=== PATIENT | female | born 1960 | race Caucasian/White ===

== ENCOUNTER → 2020-01-17 15:28 | Outpatient (CLI) | payer OTHER, SELFPAY ==
[2020-01-17 16:19] LABS: Add Manual Diff / Slide Review NO; Basophils Absolute Auto 0 /uL (0-100); Eosinophils Absolute Auto 100 /uL (0-450); Eosinophils Percent Auto 2.3 % (2-4); Hematocrit 39.8 % (36-46); Hemoglobin 13.6 g/dL (12.0-16.0); Lymphocytes Absolute Auto 600 /uL (1100-4500); Lymphocytes Percent Auto 13.3 % (25-40); Mean Corpuscular HGB Conc 34.1 % (30-36); Monocytes Absolute Auto 500 /uL (0-900); Monocytes Percent Auto 9.7 % (3-14); Neutrophils Absolute Auto 3400 /uL (1500-7000); Neutrophils Percent Auto 73.7 % (50-75); Platelet Count 243 X10^3/uL (150-400); Red Blood Cell Count 4.52 X10^6/uL (4.0-5.2); Red Cell Distribution Width 13.9 % (11.6-14.8); White Blood Cell Count 4.6 X10^3/uL (4.5-11.0)
[2020-01-17 16:35] LABS: Alanine Aminotransferase 23 IU/L (<35); Albumin 4.6 g/dL (3.5-5.0); Albumin Globulin Ratio 1.5 (1.0-2.8); Alkaline Phosphatase 80 U/L (38-126); Aspartate Aminotransferase 35 IU/L (14-36); BUN Creatinine Ratio 11.5 (6-22); Blood Urea Nitrogen 12 mg/dL (7-17); Calcium 9.9 mg/dL (8.4-10.2); Carbon Dioxide 28 mmol/L (22-32); Chloride 100 mmol/L (98-107); Cholesterol 177 mg/dL (140-199); Estimated Glomerular Filt Rate 53.9 mL/min (>60); Globulin 3.1 g/dL (1.7-4.1); Glucose 83 mg/dL (80-110); HDL Cholesterol 54 mg/dL (40-60); HEMOLYSIS < 15 (0-50); LDL Cholesterol Calculated 111 mg/dL (<100); Potassium 3.9 mmol/L (3.4-5.1); Sodium 138 mmol/L (137-145); Total Protein 7.7 g/dL (6.3-8.2); Triglycerides 59 mg/dL (35-150)
[2020-01-17 16:53] LABS: Vitamin D 25 Hydroxy (D3) 28.9 ng/mL (30.0-100.0)
[2020-01-17 17:04] LABS: TSH w/ Reflex to FT4 0.84 uIU/mL (0.47-4.68)
== END ==
PROVIDERS: Family Provider Physician Assistant; PCP Physician Assistant; Referring Provider Physician Assistant; Visit Provider Physician Assistant
DX: R23.2 Flushing (principal); R53.83 Other fatigue; E55.9 Vitamin D deficiency, unspecified; E78.5 Hyperlipidemia, unspecified; I10 Essential (primary) hypertension
CPT/HCPCS: 36415; 80053; 80061; 82306; 84443; 85025

== ENCOUNTER → 2020-01-22 11:22 | Outpatient (CLI) | payer OTHER, SELFPAY ==
[2020-01-25 16:14] LABS: COVID19 Sendout Not Detected (Not Detected)
== END ==
PROVIDERS: Family Provider Physician Assistant; PCP Physician Assistant; Visit Provider Registered Nurse
DX: Z01.812 Encounter for preprocedural laboratory examination (principal)
CPT/HCPCS: 87635

== ENCOUNTER → 2020-01-24 15:59 | Outpatient (CLI) | payer OTHER, SELFPAY ==
[2020-01-24 18:07] LABS: COVID19 -Nasal RAPID Negative (Negative)
== END ==
PROVIDERS: Family Provider Physician Assistant; PCP Physician Assistant; Visit Provider Registered Nurse
DX: Z01.812 Encounter for preprocedural laboratory examination (principal)
CPT/HCPCS: 87635

== ENCOUNTER → 2020-06-18 11:44 | Outpatient (CLI) | payer OTHER, SELFPAY ==
[2020-06-19 06:52] LABS: COVID19 Sendout Not Detected (Not Detect)
== END ==
PROVIDERS: Family Provider Physician Assistant; PCP Physician Assistant; Visit Provider Nurse Practitioner
DX: Z11.59 Encounter for screening for other viral diseases (principal)
CPT/HCPCS: 87635

== ENCOUNTER → 2021-05-02 10:32 | Outpatient (CLI) | payer OTHER, SELFPAY ==
[2021-05-02 13:50] LABS: COVID19 -Nasal RAPID Negative (Negative)
== END ==
PROVIDERS: Family Provider Physician Assistant; PCP Physician Assistant; Visit Provider Nurse Practitioner
DX: Z20.822 Contact with and (suspected) exposure to COVID-19 (principal)
CPT/HCPCS: 87635

== ENCOUNTER → 2024-07-05 14:53 | Outpatient (CLI) | payer OTHER, SELFPAY ==
[2024-07-05 15:34] LABS: Add Manual Diff / Slide Review NO; Basophils Absolute Auto 0 /uL (0-100); Basophils Percent Auto 0.6 % (0-2); Eosinophils Absolute Auto 200 /uL (0-450); Hematocrit 45.2 % (36-46); Lymphocytes Absolute Auto 1400 /uL (1100-4500); Lymphocytes Percent Auto 16.8 % (25-40); Mean Corpuscular HGB Conc 33.1 % (30-36); Mean Corpuscular Hemoglobin 29.7 PG (26-34); Mean Corpuscular Volume 89.5 fL (80-100); Monocytes Absolute Auto 700 /uL (0-900); Neutrophils Absolute Auto 5800 /uL (1500-7000); Neutrophils Percent Auto 70.6 % (50-75); Platelet Count 266 X10^3/uL (150-400); Red Blood Cell Count 5.05 X10^6/uL (4.0-5.2); Red Cell Distribution Width 13.8 % (11.6-14.8); White Blood Cell Count 8.2 X10^3/uL (4.5-11.0)
[2024-07-05 15:49] LABS: Hemoglobin A1C% w Est Avg Glu 4.9 % (4.0-6.0)
[2024-07-05 15:54] LABS: BUN Creatinine Ratio 12.7 (6-22); Blood Urea Nitrogen 13 mg/dL (7-17); Calcium 10.3 mg/dL (8.4-10.2); Carbon Dioxide 27 mmol/L (22-32); Chloride 96 mmol/L (98-107); Estimated Glomerular Filt Rate > 60 mL/min (>60); Glucose 76 mg/dL (80-110); HEMOLYSIS 23 (0-50); Potassium 3.9 mmol/L (3.4-5.1); Sodium 135 mmol/L (137-145)
[2024-07-05 16:25] LABS: Appearance Urine UA CLEAR; Bilirubin Urine UA NEGATIVE (NEGATIVE); Color Urine UA YELLOW; Glucose Urine UA NEGATIVE (Negative); Ketones Urine UA 1+ (NEGATIVE); Leukocyte Esterase Urine UA TRACE (NEGATIVE); Nitrite Urine UA NEGATIVE (Negative); Occult Blood Urine UA NEGATIVE (Negative); Protein Urine UA NEGATIVE (Negative); Urobilinogen Urine UA 0.2 E.U./dL (0.2)
[2024-07-05 16:26] LABS: pH Urine UA 5.5 (4.5-8.0)
[2024-07-05 16:33] LABS: Bacteria Urine Moderate (10-30); Culture Indicated Urine Cult Not Indicated; Mucus Urine 1+ (Negative); RBC Urine 0-1/HPF (0-5/HPF); Squamous Epithelial Cell Urine 10-30 /HPF (0-5/HPF); Urine Volume 10mL (spun); WBC Urine 1-5/HPF (0-5/HPF)
== END ==
LOC: LAB 14:56
PROVIDERS: Family Provider Physician Assistant; PCP Physician Assistant; Referring Provider Orthopaedic Surgery; Visit Provider Orthopaedic Surgery
DX: Z01.812 Encounter for preprocedural laboratory examination (principal); R73.9 Hyperglycemia, unspecified; N39.0 Urinary tract infection, site not specified
CPT/HCPCS: 36415; 80048; 81001; 83036; 85025

== ENCOUNTER 2024-08-24 10:00 | Day surgery (SDC) | payer OTHER, SELFPAY ==
[2024-08-04 12:28] VITALS: BMI 34.0
[2024-08-24] VITALS (10 sets, daily range): BP systolic 109–169; BP diastolic 63–94; PULSE 60–84; RESP 16–18; TEMP 35.8–36.8; O2SAT 98–100; BMI 34.0; BMI 32.9; BMI 34.8
--- NOTE | 2024-08-24 | DI.RAD.S_ITS ---
PROCEDURE: [id number] W PEL IF PERFORMED INDICATIONS: ANTERIOR LEFT TOTAL HIP TECHNIQUE: 4 intraoperative fluoroscopic images of the left hip. COMPARISON: None. FINDINGS: Intraoperative fluoroscopic images shows left total hip arthroplasty in progress. IMPRESSION: Fluoro guidance was provided intraoperatively for left total hip arthroplasty by ordering physician. Dictated by: Germán Espinoza M.D. on 08/25/2024 at 9:38 Approved by: Germán Espinoza M.D. on 08/25/2024 at 9:39
--- NOTE | 2024-08-24 06:00 | DI.RAD.S_ITS ---
PROCEDURE: XR HIP W PEL IF DONE LT 2V INDICATIONS: total left hip TECHNIQUE: AP pelvis and lateral view of the hip acquired. COMPARISON: [facility], CR, [id number] W PEL IF PERFORMED, 08/24/2024, 13:35. FINDINGS: Bones: Patient is status post left hip arthroplasty, with hardware components in expected positions. The hip joint appears congruent. The visualized bony structures appear intact. Soft tissues: Overlying postoperative changes are noted. No suspicious soft tissue densities. IMPRESSION: Expected post-operative appearance of a left hip arthroplasty. Dictated by: Nasim Bueno M.D. on 08/24/2024 at 15:34 Approved by: Nasim Bueno M.D. on 08/24/2024 at 15:34
--- NOTE | 2024-08-24 10:28 | PM.PREOP ---
Pre-operative Note Interval Note History & Physical reviewed/Exam performed by Physician: Yes Changes to H&P: No
[2024-08-24] MEDS: ACETAMINOPHEN 325 MG TABLET 975 MG PO (10:54)
[2024-08-24] MEDS: CELECOXIB 200 MG CAPSULE PO (10:55)
[2024-08-24] MEDS: VANCOMYCIN 1,000 MG in SODIUM CHLORIDE 0.9% 250 ML 250 MG IV (10:55)
[2024-08-24] MEDS: LACTATED RINGERS 1,000 ML 42 ML IV (10:55)
[2024-08-24] MEDS: CEFAZOLIN 2 GM/100 ML PREMIX 100 ML IV ×2 (12:26→20:10)
[2024-08-24] MEDS: TRANEXAMIC ACID 1,000 MG VIAL 2000 MG INJ ×2 (12:35→14:16)
--- NOTE | 2024-08-24 13:00 | SUR.OPER ---
Patient supine on padded [place] table, one arm on padded arm board at <90, other arm padded and secured with tape across patient's chest, both legs secured in padded traction boots and positioned per surgeon, padded post at patient's groin, pressure points checked and padded.
[2024-08-24] MEDS: BUPIVACAINE 0.25% (PF) 60 ML, EPINEPHrine 0.3 MG INJ (13:15)
[2024-08-24] MEDS: BUPIVACAINE LIPOSOME 266 MG/20 ML VIAL INJ (13:15)
[2024-08-24] MEDS: SODIUM CHLORIDE 0.9% 1,000 ML 84 ML IV (13:55)
[2024-08-24] MEDS: IBUPROFEN 400 MG TABLET PO ×2 (15:40→20:11)
--- NOTE | 2024-08-24 16:05 | PT-IP ANOTE ---
Pt just arrives to floor post-op. No op report yet available. Will initiate assessment next date.
[2024-08-24] MEDS: MORPHINE 4 MG/ML INJ 3 MG IV ×3 (16:11→22:44)
[2024-08-24] MEDS: LACTATED RINGERS 1,000 ML 100 ML IV (16:23)
[2024-08-24] MEDS: ACETAMINOPHEN 325 MG TABLET 650 MG PO ×2 (16:51→22:45)
--- NOTE | 2024-08-24 16:52 | PC.NURSE ---
Patient arrived from PACU at 1530 this afternoon. She is A&OX4, VSS, afebrile on RA. Initially she reports BLE numbness to roque area.She is initially unable to wiggle toes, but denies pain to L hip. Aquacel in place c/d/i. She denies n/v/. Later on approximately 1700 she is able to bend knees and turn in bed,she is able to lift legs, and reports dull sensation to BLE's. IVF LR at 100 ml/hr, call light in reach, SCD's on, continuous pulse ox, orientation to room/unit routine, bed alarm on. She reports last void at approximately 11 a.m. and due to void this evening at 1900. Continuous monitoring.
--- NOTE | 2024-08-24 17:53 | P.OP_ITS ---
Operative Date/Time/Diagnoses Date of procedure: 08/24/24 Time of procedure: 12:30 Pre-op diagnosis: Severe left hip OA Post-op diagnosis: same Procedure & Clinicians Procedure: Left total hip arthroplasty anterior approach Same procedure as scheduled: Yes Indications: The patient has had progressively worsening left hip pain with radiographic changes consistent with arthritis. Non-operative management has failed and the patient has requested total hip replacement. The risks, benefits and alternatives to surgery were discussed with the patient prior to proceeding. Risks discussed included, but were not limited to, failure to relieve pain, leg length discrepancy, dislocation, stiffness, infection, nerve damage, deep venous thrombosis, pulmonary embolism, stroke, coma, heart attack, permanent paralysis and , as well as the potential need for eventual revision of the prosthetic. Surgeon: Vibha Chairez [employer] Coach: Bradley Hall Anesthesia Type: General and Spinal Operative Notes Findings: Severe left hip OA, adequate stability, adequate bone Closure Type: primary Specimen(s): none sent Prosthetic devices, grafts, tissues, transplants, or devices: Chairez and Nephew 48 mm R3, neutral poly liner, 32 +0 Oxinium head,one 6.5 mm screw, size 0 polar stem Estimated Blood Loss (mL): 250 Blood products transfused: none Procedure in detail: The patient was brought to the operating room. Patient was carefully positioned in the supine position. Time-out was performed and antibiotics were given. Anesthesia was induced. She was positioned in the on the table in order to allow hyperextension of the hip. The left lower extremity was prepped and draped in a standard sterile fashion. An anterior left hip incision was made 1 fingerbreadth lateral to the anterior superior iliac spine and extended distally towards the greater trochanter. Dissection was carried out through skin and subcutaneous tissues. Superficial hemostasis was achieved. The fascia over the tensor fascia maranda was defined and incised with a knife. Two Allis clamps were used to grasp the fascia. Tensor fascia maranda was retracted laterally. A gelpi retractor was placed. Dissection was carried out down along the neck. The circumflex vessels were carefully identified and cauterized with the Aqua Mantis. PA was used during the procedure and was essential for intraoperative retraction and safe implantation of the components. There was good visualization of the femoral neck. A Cobra was placed superior to the neck and the gluteus fibers were carefully stripped from that superior aspect of the capsule. A 2nd retractor was placed along the inferior aspect of the neck. The rectus insertion along the capsule was partially released. A 3rd retractor that was then gently placed over the rim of the acetabulum under the rectus. Capsule was carefully incised and released from the intertrochanteric line circumferentially superior to the mid sagittal line and inferiorly to the mid sagittal line until the lesser trochanter was palpable. A tag stitch was placed both in the superior and inferior limb of the capsular insertion. Along the acetabulum capsule was also released up to the mid sagittal 12:00 position. A portion of the labrum was resected. A saw was used to perform an osteotomy at the level of the intertrochanteric line and the junction of the superior femoral neck leaving approximately 1 finger breath of residual inferior neck above the lesser trochanter. A 2nd cut was made along the femoral neck at the base of the head and a napkin ring of neck was removed. Corkscrew was placed in the femoral head and the head was removed without difficulty. Retractors were then repositioned around the acetabulum. Residual labrum was resected and additional osteophytes were removed. A reamer that was 4 mm below the templated size was placed by hand in the acetabulum and it was reamed to centralize the acetabulum. It was then reamed up to 2 under the templated size and fluoroscopy was brought in to confirm the position of the reaming and depth of reaming. I reamed 1 under the anticipated size. A trial cup was placed and noted that it was appropriately sized and fluoroscopy confirmed position and depth. The component was open and inserted without difficulty fluoroscopic imaging was used to confirm that the cup had been adequately seated and was well positioned. It was further stabilized with a single screw. Neutral poly liner was placed. The cup was tested and noted to be stable. Attention was then directed to the femur. The femur was gently hyperextended additional capsular release was performed as needed in order to allow adequate visualization of the proximal femur with elevation of the femur. Patient was placed in a hyperextended slightly adducted position with maximum external rotation. Box osteotome was used to check for any residual neck as well as sclerotic bone along the trochanter. [place] pepper was placed in the femur. Additional broaching was performed. Canal finder was used to determine the alignment of the canal and position. Size 1 broach was placed. The canal was then appropriately broached up to the templated size as long as there was adequate stability of the broach and serial advancement of the broach without excessive impingement. Specific attention was directed at avoiding varus attempting to direct the distal aspect of the broach more anteriorly and avoiding excessive anteversion. Trial reduction showed acceptable range of motion, good stability, no posterior impingement, orthodox of leg length and appropriate lateral shuck. I also hyperflexed the hip and checked that there was no impingement anteriorly and there was good stability with flexion, adduction and internal rotation. The stem was placed without difficulty. Repeat trial reduction and x-ray showed acceptable overall position, length, and no evidence of the femoral fracture. Final head was placed. Wound was meticulously irrigated with normal saline. The hip was reduced and additional Exparel and Marcaine were injected. The capsule was closed with interrupted nonabsorbable sutures. The fascia of the tensor was closed with interrupted and running Vicryl. No drain was placed. Any tensor fascia maranda muscle that appeared to be contused or injured which was a minimal amount was carefully resected. Capsule around the tensor was injected with Exparel and Marcaine. The skin was closed with barbed stitches for the subcutaneous tissue and skin. We also used some skin bhupinder. The wound was dressed sterilely. Brief Betadine soak was also used and was meticulously irrigated with normal saline. Patient was transferred to recovery room in satisfactory condition. Complications: none Post-operative Condition: stable Disposition: Acute Care Plan for aftercare: The patient will be maintained on a standard total hip replacement protocol with weight bearing as tolerated and anterior hip precautions. The patient will receive Aspirin and sequential compression devices for DVT prophylaxis. The patient will be discharged home when safe for the home environment.
[2024-08-24] MEDS: ASPIRIN EC 81 MG TABLET PO (20:11)
[2024-08-24] MEDS: DOCUSATE 100 MG CAPSULE PO (20:13)
[2024-08-24] MEDS: CALCIUM CARBONATE 500 MG TAB PO (22:26)
--- NOTE | 2024-08-25 00:32 | PC.NURSE ---
Patient up to commode, 2PA, unable to void. Bladder scan result 525mL, straight cath- 450mL. PVR 42ml
[2024-08-25] MEDS: ONDANSETRON 4 MG ODT PO ×2 (02:31→09:10)
[2024-08-25] MEDS: CALCIUM CARBONATE 500 MG TAB PO ×2 (02:31→12:18)
[2024-08-25] MEDS: CEFAZOLIN 2 GM/100 ML PREMIX 100 ML IV (03:24)
[2024-08-25] MEDS: IBUPROFEN 400 MG TABLET PO (06:09)
[2024-08-25] MEDS: MORPHINE 4 MG/ML INJ 3 MG IV (06:09)
[2024-08-25] MEDS: CYCLOBENZAPRINE 10 MG TABLET PO (06:09)
[2024-08-25 06:50] LABS: Hematocrit 34.5 % (36-46); Hemoglobin 11.5 g/dL (12.0-16.0)
[2024-08-25 08:00] VITALS: BP 118/61; PULSE 70; RESP 17; TEMP 36.6; O2SAT 97
--- NOTE | 2024-08-25 08:11 | P.DS_ITS ---
History of Present Illness History of Present Illness Date Patient Seen: 08/25/24 Time Patient Seen: 08:11 Chief complaint: Left NAZ *OPB* Narrative: The patient has had progressively worsening left hip pain with radiographic changes consistent with arthritis. Non-operative management has failed and the patient has requested total hip replacement. The risks, benefits and alternatives to surgery were discussed with the patient prior to proceeding. Risks discussed included, but were not limited to, failure to relieve pain, leg length discrepancy, dislocation, stiffness, infection, nerve damage, deep venous thrombosis, pulmonary embolism, stroke, coma, heart attack, permanent paralysis and , as well as the potential need for eventual revision of the prosthetic. Discharge Providers Provider Discharge Date: 08/25/24 Primary care physician: Ananya Wild PA-C Consults: 08/23/24 06:00 Consult to Anesthesiology Routine Comment: Consulting Provider: Anesthesiologist Reason for consultation: Regional block for post operative pain control 08/24/24 15:35 Consult to Discharge Planning Routine Comment: Consult to Occupational Therapy Evaluate & Treat Comment: Physician Instructions: Evaluate and treat Consult to Physical Therapy Evaluate & Treat Comment: Physician Instructions: post op NAZ protocol Discharge provider: Brendon Brooks PA-C Summary Hospital Course Discharge Diagnosis: Severe left hip OA Hospital Course: Procedure & Clinicians Procedure: Left total hip arthroplasty anterior approach Same procedure as scheduled: Yes Surgeon: Vibha Chairez Financial Planning Assistant: Bradley Hall Anesthesia Type: General and Spinal Operative Notes Findings: Severe left hip OA, adequate stability, adequate bone Closure Type: primary Specimen(s): none sent Prosthetic devices, grafts, tissues, transplants, or devices: Chairez and Nephew 48 mm R3, neutral poly liner, 32 +0 Oxinium head,one 6.5 mm screw, size 0 polar stem Estimated Blood Loss (mL): 250 Blood products transfused: none Status at Discharge Cognitive/behavioral status at discharge: oriented Functional status at discharge: uses cane/walker Overall status at discharge: patient is back to baseline Time Spent with Patient Time spent: Less than 30 minutes Exam Vital Signs (past 8 hours): Oxygen Delivery Method Room Air Oxygen Flow Rate 0 Narrative Exam Narrative: 5/5 strength in hip flexors, quadriceps, hamstrings, DF, PF, EHL bilaterally. Sensation to light touch intact throughout BLE. Calves soft, compressible, nontender. Resp Effort & Inspection: normal respiratory effort and able to speak in complete sentences Objective Labs 08/25/24 06:30 Labs: Laboratory Results - last 24 hr 08/25/24 06:30 Hgb 11.5 L Hct 34.5 L PFSH Medical History Chronic back pain Autoimmune disease IBS (irritable bowel syndrome) RIVAS on CPAP GERD (gastroesophageal reflux disease) Asthma HTN (hypertension) Surgical History History of partial hysterectomy Hx of discectomy Hx of bilateral mastectomy History of foot surgery S/P trigger finger release History of total left knee replacement History of total right knee replacement Social History household members: spouse Smoking Status: Never smoker alcohol intake: current Discharge Assessment & Plan Assessment and Plan Assessment: Status post Left NAZ Plan of Treatment: Discharge to home. Baseline pain relief acetaminophen 650 mg q.6 hours PRN and ibuprofen 400 mg q.4 hours PRN. Patient has been prescribed Dilaudid 2 mg q.4 hours PRN for any breakthrough pain. Aspirin 81 mg twice a day for 6 weeks for DVT prevention. Ambulate with assistive devices as tolerated. Initiate physical therapy in 5-10 days. Follow up in clinic for wound check in 2 weeks. Discharge Plan Discharge Plan Patient Disposition: Home Provider Discharge Comment: DC pending PT approval Discharge orders & Medications Discharge Orders: Discharge (Order); Ordered 08/25/24 Ordered By: Brendon Brooks Prescriptions: New acetaminophen 325 mg Tablet 650 mg PO Q6H PRN (Reason: Fever/Mild Pain (1-3)) Qty: 120 0RF aspirin 81 mg Tablet,Delayed Release (Dr/Ec) 81 mg PO BID Qty: 90 0RF hydromorphone 2 mg Tablet 2 mg PO Q4HR PRN (Reason: Pain, Moderate (4-6)) Qty: 30 0RF ibuprofen 400 mg Tablet 400 mg PO Q4H PRN (Reason: Pain, Mild (1-3)) Qty: 120 0RF Continued epinephrine 0.3 MG/0.3 ML auto-injector 0.3 mg IJ PRN PRN (Reason: yellow jackets) Qty: 0 cyclobenzaprine 5 MG tablet 10 mg PO PRN PRN (Reason: muscle spasms) Qty: 0 hydroxychloroquine 200 mg tablet 200 mg PO BID ramipril 10 mg capsule 10 mg PO DAILY hydrochlorothiazide 25 mg Tablet 25 mg PO PRN PRN (Reason: Edema) Discontinued naproxen sodium 220 MG capsule 220 mg PO BID PRN (Reason: Pain, Moderate) Qty: 0 Follow up/Referrals: Ananya Wild PA-C [Primary Care Provider] - Diet/Activity/Treatments Diet: Diet as Tolerated Activity: Ambulate multiple times a day. Use a cane or walker as needed. Full weight on leg. Cold/Heat Therapy: Use ice multiple times a day. Skin/Wound/Dressing Care Skin care: Leave dressing on. Okay to shower Report to your healthcare provider any signs of infection, such as:: chills, fever, night sweats, unusual drainage and unusual redness Dressing: May shower. Leave dressing in place until follow up in office. No bathing or otherwise soaking incision. Call the office if the dressing becomes saturated inside. Visit Report/Discharge Packet Instructions: DI for Hip Replacement, DI for Constipation, How to Prevent Falls, DI for Prescription Opioid Use Stand Alone Forms: Patient Portal/API, Surgery Discharge Discharge Data Primary Care Provider: Ananya Wild Attending Provider: Vibha Chairez VTE Deep Vein Thrombosis/Pulmonary Embolism Present on Admission: No
[2024-08-25] MEDS: hydroCHLOROthiazide 25 MG TABLET PO (09:10)
[2024-08-25] MEDS: lisinopriL 20 MG TABLET 40 MG PO (09:11)
[2024-08-25] MEDS: ASPIRIN EC 81 MG TABLET PO (09:11)
[2024-08-25] MEDS: ACETAMINOPHEN 325 MG TABLET 650 MG PO (09:11)
[2024-08-25] MEDS: HYDROXYCHLOROQUINE 200 MG TABLET PO (09:12)
[2024-08-25] MEDS: DOCUSATE 100 MG CAPSULE PO (09:12)
--- NOTE | 2024-08-25 09:23 | OT.IP.EVAL ---
Current Diagnoses Unilateral primary osteoarthritis, left hip (08/24/24) Surgery Performed Operation Date: 08/24/24 10:45 Actual Procedures p Total Hip Arthroplasty/Anterior Approach(Left) - Vibha Chairez MD Past Medical History (Last Reviewed 08/24/24 @ 09:46 by Patricia Young, RN) Asthma Autoimmune disease Chronic back pain GERD (gastroesophageal reflux disease) HTN (hypertension) IBS (irritable bowel syndrome) RIVAS on CPAP Surgical History (Last Reviewed 08/24/24 @ 09:46 by Patricia Young, RN) History of foot surgery History of partial hysterectomy History of total left knee replacement History of total right knee replacement Hx of bilateral mastectomy Hx of discectomy S/P trigger finger release Occupational Therapy Inpatient Evaluation/Re-Eval M1 PT/OT-IP Prior Functional Status Start: 08/24/24 16:03 Freq: NEEDED Status: Active Protocol: Document 08/25/24 09:25 [facility] (Rec: 08/25/24 09:35 [facility] [id number]) Medical Review Prior Functional Status Communication I Mobility and Gait Pt states used her SPC 80% of the time as her left hip gives out at times. Activities of Daily Living and IADL's Pt's did all IADL needs. Social History Household Members spouse Living Arrangements House Number of Floors (Floors) Two Floors Number of Stairs To Enter/Railing? NO steps to enter and able to stay on the main level. Home Environment High Toilet,Walk in Shower, Built-In Shower Seat Home Equipment Four Wheel Walker,Straight Cane,Raised Toilet Seat w/ Armrests,Hand Held Shower, Insights Manager M2 OT-IP Current Condition Start: 08/25/24 09:24 Freq: Status: Active Protocol: Document 08/25/24 09:25 [facility] (Rec: 08/25/24 09:35 [facility] [id number]) Occupational Therapy Current Condition Current Condition Evaluation Date 08/25/24 Treatment Diagnosis S/P L NAZ anterior Diagnosis Onset Date 08/24/24 Post Operative Precautions Anterior Hip Precautions No Hip Extension,No Hip External Rotation M3 OT- IP Subjective and Pain Start: 08/25/24 09:24 Freq: Status: Active Protocol: Document 08/25/24 09:25 [facility] (Rec: 08/25/24 09:35 [facility] [id number]) OT- Subjective Occupational Therapy Visit Type Type Initial Evaluation Visit Start Time 08:53 Visit Stop Time 09:23 Occupational Therapy Visit Comments Patient Comments Pt agreed to get up. Patient/Caregiver Goals TO go home. OT Pain Assessment Pain When Pain Assessed During Mobility Pain Present Pain Present Pain Reported Location Left Hip Intensity 6 Scale Used Numeric (0 - 10) M4 OT- IP ADL's Start: 08/25/24 09:24 Freq: Status: Active Protocol: Document 08/25/24 09:25 [facility] (Rec: 08/25/24 09:35 [facility] [id number]) OT [id number] General Evaluation Self-Feeding Ability Independent OT ADL-Grooming General Evaluation Grooming Ability Independent OT ADL-Oral Care General Eval Oral Care Ability Independent OT ADL-Dressing General Eval Lower Body Dressing Ability Moderate Assistance Comments OT Dressing Comments Assist with socks. OT ADL-Toileting Comments OT Toileting Comments Pt not having to go. Educated pt on being mindful of her LLE positioning during hygiene needs and best to stand to wipe at this time. OT ADL-Bathing Comments OT Bathing Comments Pt aware to get assist. Pt may want to consider a shower chair if the built in seat is too low. M5 OT- IP IADL's Start: 08/25/24 09:24 Freq: Status: Active Protocol: Document 08/25/24 09:25 [facility] (Rec: 08/25/24 09:35 [facility] [id number]) OT-Instrumental Activities of Daily Living Home Safety Awareness Awareness of Need for Assistance at Home Good Awareness Ability to Problem Solve Emergency Able to Problem Solve Situations Medication Management Medication Management Caregiver Provides Supervision Money Management Money Management Caregiver Provides Assistance Meal Preparation Meal Preparation Caregiver Provides Assist Construction Job Titles Construction Job Titles Caregiver Provides Assist M6 OT- IP Functional Cognition Start: 08/25/24 09:24 Freq: Status: Active Protocol: Document 08/25/24 09:25 [facility] (Rec: 08/25/24 09:35 [facility] [id number]) Cognitive Factors Limiting Selfcare Function Cognitive Ability Level of Alertness Alert Patient Orientation Name,Age,Birthday,Month,Date, Year,Day of Week,Place, Situation Attention Span Ability Capable of Focused Attention, Capable of Sustained Attention Ability to Follow Commands Able to Follow Multi-Step Commands Memory Description No Deficits Noted Safety Awareness No Deficits Noted Cognitive Comments Cognitive Assessment Comments Pt is intact. OT- Vision and Hearing OT- Hearing Assessment OT- Hearing Assessment WFL OT- Vision Assessment Visual Acuity Glasses For Reading Visual Attentiveness WFL Occular Pursuits WFL M7 OT- IP Mobility and Balance Start: 08/25/24 09:24 Freq: Status: Active Protocol: Document 08/25/24 09:25 [facility] (Rec: 08/25/24 09:35 [facility] [id number]) OT- Bed Mobility Assessment Supine to Sit Supine to Sit Assist Minimal Assistance Scooting Scooting to Edge of Bed Standby Assistance OT-Transfer Assessment Sit to and From Stand Sit to and from Stand Contact Guard Assistance Transfers Transfer Ability Contact Guard Assistance Technique Transfer Destination Bed,Chair Transfer Technique Stand Step Pivot Devices Transfer Assistive Devices Gait Belt,Front Wheeled Walker Comments Mobility Comments Pt LENA to assist to get her LLE to the edge of the bed. CGA to stand and transfer with the FWW. PT to try the 4ww with pt. Educated pt on precautions for bed mobility and transfers. BP supine 132/77 , sitting 139/79. OT- Balance Assessment Sitting Balance and Reactions Static Sitting Balance Ability Normal Dynamic Sitting Balance Ability Good Standing Balance and Reactions Static Standing Balance Ability Good Dynamic Standing Balance Ability Good M8 OT- IP Objective Assessments Start: 08/25/24 09:24 Freq: Status: Active Protocol: Document 08/25/24 09:25 [facility] (Rec: 08/25/24 09:35 [facility] [id number]) OT Gross Range of Motion Upper Extremity Range of Motion Assessment Within Functional Limits OT Strength Upper Extremity Strength Assessment Within Functional Limits M9 OT- IP Assessment and Plan Start: 08/25/24 09:24 Freq: Status: Active Protocol: Document 08/25/24 09:25 [facility] (Rec: 08/25/24 09:35 [facility] [id number]) OT Summary Assessment and Plan Potential Rehabilitation Potential Excellent Analytic Complexity at Evaluation Low Summary OT Impairments Pain,Functional Mobility, Dressing,Toileting,Bathing, Toilet Transfers,Shower Transfers Progress Towards Goals Progressing Toward Goals Assessment Summary Pt low complexity and main barrier are pain and still having difficulty to move her LLE during bed mobility needs. Pt to go to home with her to assist and have outpt PT. Goals Dressing Goal Minimal Assistance,Insights Manager Toileting Goal Independent Bathing Goal Standby Assistance Toilet Transfer Goal Independent Shower Transfer Goal Standby Assistance Days to Meet Goals 2 Frequency of Treatment Other frequency 5x/week Treatment Plan OT Treatment Plan ADL Training,Functional Mobility,Patient/Family Education,Discharge Planning Discharge Recommendations OT Discharge Recommendations Home with Assistance Home Equipment Needs shower chair if built in seat is too low Transportation Needs at Discharge Private Vehicle
[2024-08-25] MEDS: HYDROMORPHONE 2 MG TABLET 4 MG PO ×2 (10:23→16:44)
--- NOTE | 2024-08-25 10:34 | PT.IIE ---
Current Diagnoses Unilateral primary osteoarthritis, left hip (08/24/24) Surgery Performed Operation Date: 08/24/24 10:45 Actual Procedures p Total Hip Arthroplasty/Anterior Approach(Left) - Vibha Chairez MD Surgical History (Last Reviewed 08/24/24 @ 09:46 by Patricia Young, RN) History of foot surgery History of partial hysterectomy History of total left knee replacement History of total right knee replacement Hx of bilateral mastectomy Hx of discectomy S/P trigger finger release Medical History (Last Reviewed 08/24/24 @ 09:46 by Patricia Young, RN) Asthma Autoimmune disease Chronic back pain GERD (gastroesophageal reflux disease) HTN (hypertension) IBS (irritable bowel syndrome) RIVAS on CPAP Physical Therapy Inpatient Evaluation/Re-Eval M1 PT/OT-IP Prior Functional Status Start: 08/24/24 16:03 Freq: NEEDED Status: Active Protocol: Document 08/25/24 10:00 AMB (Rec: 08/25/24 10:33 AMB [id number]) Medical Review Prior Functional Status Medical History Reviewed Yes Communication I Mobility and Gait Pt states used her SPC 80% of the time as her left hip gives out at times. Activities of Daily Living and IADL's Pt's did all IADL needs. Social History Household Members spouse Living Arrangements House Number of Floors (Floors) Two Floors Number of Stairs To Enter/Railing? NO steps to enter and able to stay on the main level. Home Environment High Toilet,Walk in Shower, Built-In Shower Seat Home Equipment Four Wheel Walker,Straight Cane,Raised Toilet Seat w/ Armrests,Hand Held Shower, Aircraft Stress Analyst Employment Status Retired M2 PT-IP Current Condition Start: 08/24/24 16:03 Freq: NEEDED Status: Active Protocol: Document 08/25/24 10:00 AMB (Rec: 08/25/24 10:33 AMB [id number]) Physical Therapy Current Condition Current Condition Evaluation Date 08/25/24 Treatment Diagnosis L anterior NAZ Onset Date 08/24/24 M3 PT-IP Subjective Start: 08/24/24 16:03 Freq: NEEDED Status: Active Protocol: Document 08/25/24 10:00 AMB (Rec: 08/25/24 10:33 AMB [id number]) Subjective Physical Therapy Visit Type Type Initial Evaluation Visit Start Time 09:30 Visit Stop Time 10:00 Physical Therapy Visit Comments Patient Comments Pt just finishing up with OT, happy to work with PT Therapy Pain Assessment Pain When Pain Assessed During Mobility Location Left Hip Intensity 6 Scale Used Numeric (0 - 10) Pain Management Techniques Apply Cold,Timing of Activity with Medications M4 PT-IP Mobility and Gait Start: 08/24/24 16:03 Freq: NEEDED Status: Active Protocol: Document 08/25/24 10:00 AMB (Rec: 08/25/24 10:33 AMB [id number]) PT-Transfer Assessment Sit to and From Stand Sit to and from Stand Standby Assistance Equipment Transfer Assistive Device Gait Belt,4 Wheeled Walker Transfers Transfer Destination Chair,Bedside Commode Transfer Technique Stand Step Pivot Transfer Ability Level of Assist Standby Assistance Comments Mobility Comments Diony is able to perform transfers with SBA to get to the 4WW, good safety awareness pushing up from the chair. Gait Assessment Gait Gait Assistance Required: Contact Guard Assist Distance (Feet) 50 Assistive Devices Assistive Device Gait Belt,4 Wheeled Walker Gait Deviations General Gait Pattern Antalgic,Decreased Stride Length Comments Gait Comments Diony's pain increased with ambulation but she was able to walk outside her room with a 4WW safely, walked back to her room and she wanted to sit on the bedside commode to try to urinate. Pt had difficulty urinating so let nurse Magali know pt was still on commode. Stair Climbing Assessment Comments Stair Climbing Comments not assessed as pt does not have stairs to enter. M5 PT-IP Objective Assessments Start: 08/24/24 16:03 Freq: NEEDED Status: Active Protocol: Document 08/25/24 10:00 AMB (Rec: 08/25/24 10:33 AMB [id number]) Orientation Orientation/Cognition Level of Alertness Alert Gross Range of Motion Upper Extremity ROM Assessment Within Functional Limits Lower Extremity ROM Assessment Left Impaired Strength Upper Extremity Strength Assessment Within Functional Limits Lower Extremity Strength Assessment Left Impaired Sensation Assessment Sensation Gross Sensation WNL M6 PT-IP Treatment Start: 08/24/24 16:03 Freq: NEEDED Status: Active Protocol: Document 08/25/24 10:00 AMB (Rec: 08/25/24 10:33 AMB [id number]) Physical Therapy Treatment Exercises Exercises Ankle Pumps,Gluteal Sets,Quad Sets Education Education Provided Precautions,Weight Bearing Status,Post-Op Packet,Safety M7 PT-IP Assessment and Plan Start: 08/24/24 16:03 Freq: NEEDED Status: Active Protocol: Document 08/25/24 10:00 AMB (Rec: 08/25/24 10:33 AMB [id number]) PT Summary Assessment and Plan Potential Rehabilitation Potential Good Status of Condition at Evaluation Stable Summary Impairments Pain,ROM,Strength,Balance, Transfers,Gait,Activity Tolerance Assessment Summary Diony is doing well as far as her mobility. Her will be home with her and able to support her mobility needs . She was able to transfer and ambulate with a 4WW with good safety awareness and SBA with an increase in pain. Educated in WBAT, avoiding extreme hip extension, HEP. She is concerned about her ability to urinate and nursing was notified. She should be able to safely discharge home when she is medically stable. Goals Bed Mobility Goal Standby Assistance Transfer Goal Standby Assistance Gait Goal Standby Assistance Gait Distance 100 Days to Meet Goals 3 Frequency of Treatment Frequency Of Treatment Twice a Day Treatment Plan Physical Therapy Treatment Plan Bed Mobility Training,Transfer Training,Gait Training, Therapeutic Exercise,Balance Retraining,Neuromuscular Re-ed Precautions Anterior Hip Precautions No Hip Extension,No Hip External Rotation Weight Bearing Status Weight Bearing Status Weight Bear as Tolerated Recommendations To Nursing Amount of Assist Needed 1 Person Assist Discharge Recommendations PT Discharge Recommendations Home with Assistance Transportation Needs at Discharge Private Vehicle
--- NOTE | 2024-08-25 11:43 | CM.DANOTE ---
DCP Assessment Note: Pt is a 63yo female, resident of [place], is admitted s/p L NAZ. Pt lives in a house with her spouse, Speedy. Pt's Primary Care Provider is Ananya Wild PA-C and insurance is [employer]. Reviewed chart and team rounds for pt's medical status and initial discharge needs. DCP met w/patient at bedside; introduced self and role. Present in the room is pt's , Speedy. Patient was found in bed, alert and oriented, cooperative with assessment. Pt confirmed living situation and good support in . Pt expressed preference in discharging home when cleared. Pt has no previous hx of SNF Rehab or home health. Pt stated she has already been evaluated by PT/OT and reports they have cleared her. Pt explains she has outpatient PT scheduled on 08/30/24 and declines need for home health at this time. No identified needs from DCP at this time. Plan: Discharge orders are placed, anticipating pt to discharge home with spouse to transport when cleared. CM team will follow closely for coordination of discharge plans. Aliza Aviles CLASSICS TEACHER Discharge Planning/Care Management CM Discharge Assessment Start: 08/25/24 11:42 Freq: Status: Active Protocol: Document 08/25/24 11:42 MW (Rec: 08/25/24 11:43 MW [id number]) Discharge Planning Assessment Assigned Picking Belt Operator BRUNO Abrams DPOA/Assigned Designee Name Speedy, Spouse Contact Information [phone] Advance Directives? Yes Advance Directives on File No History Provided By Patient,Family Member,Medical Record Expected Length of Stay 1 Has Patient been admitted in last 30 No days? Prior Living Arrangements House Comment [place] Household Members spouse Type of transporation used prior to Drives own vehicle admit Independent with ADL's Yes Is patient alert and oriented? Yes Caregiver for Another No DME Already Rented / Owned FWW / Walker,Cane Barriers to Discharge No Discharge Plan Home Whiteboard Updated in Patient Room with Yes name and ext. # of Picking Belt Operator Comment [phone] Review Status In Process Please Provide Date Initial DC 08/25/24 Assessment Was Performed Next Review Type Continued Stay Review
--- NOTE | 2024-08-25 15:27 | PT-IP ANOTE ---
Pt is still on the floor as she has had a difficult time voiding, but is currently on the commode trying. She does not report any PT concerns at this time, she reports her is very willing and appropriate with help. Given that she displayed good mobility this morning, and that she is on the commode trying to urinate and that is the only reason she is still here, PT did not insist on further treatment at this time, and will check on her tomorrow morning if she is still on the floor.
--- NOTE | 2024-08-25 19:34 | PC.NURSE ---
Discharge: Pt was finally able to void x2. It takes a long time to start the stream. Last void 275mls, bladder scanned for 99mls. Pt feels comfortable to go home. Reviewed urinary retention sheet with her. If she finds she is unable to void she needs to come to the ED. Discussed use of warm water, fluids, and routinely going to the bathroom q3-4 hours even at night. She tolerating pain medication. Diet tolerated. Has passed PT/OT and they have given her instructions. PA was in today as well as Dr. Chairez and they gave instructions. Reviewed discharge packet, questions answered. Pt d/c to home via auto with spouse.
== END 2024-08-25 17:30 | disposition home or self-care (01) ==
LOC: OR 10:01 → AC 10:01
PROVIDERS: Family Provider Physician Assistant; PCP Physician Assistant; Visit Provider Orthopaedic Surgery
PROC: (CPT 27130; principal; 2024-08-24 10:45)
DX: M16.12 Unilateral primary osteoarthritis, left hip (principal); M25.752 Osteophyte, left hip
CPT/HCPCS: 27130; 36415; 73502; 73503; 76000; 82962; 85014; 85018; 97161; 97165; 97530; C1776; C1713; J0171; J0666; J0690; J1100; J2250; J2270; J2274; J2405; J2704; J3010

== ENCOUNTER → 2024-09-08 14:41 | Outpatient (CLI) | payer OTHER, SELFPAY ==
[2024-08-24 15:36] VITALS: BMI 34.8
[2024-09-08 14:57] LABS: Appearance Urine UA SL CLOUDY; Bilirubin Urine UA 1+ (NEGATIVE); Glucose Urine UA NEGATIVE (Negative); Ketones Urine UA TRACE (NEGATIVE); Leukocyte Esterase Urine UA NEGATIVE (NEGATIVE); Nitrite Urine UA POSITIVE (Negative); Occult Blood Urine UA NEGATIVE (Negative); Protein Urine UA TRACE (Negative); Specific Gravity Urine UA >=1.030 (1.000-1.035); Urobilinogen Urine UA 0.2 E.U./dL (0.2)
[2024-09-08 14:59] LABS: Color Urine UA Dark Yellow
[2024-09-08 15:05] LABS: Bacteria Urine Few (2-10); RBC Urine 1-5/HPF (0-5/HPF); Squamous Epithelial Cell Urine 5-10 /HPF (0-5/HPF); Urine Volume 10mL (spun); WBC Urine 0-1/HPF (0-5/HPF)
[2024-09-08 15:07] LABS: Ictotest Urine Negative (Negative)
== END ==
LOC: LAB 14:41
PROVIDERS: Family Provider Physician Assistant; PCP Physician Assistant; Referring Provider Physician Assistant; Visit Provider Physician Assistant
DX: R30.0 Dysuria (principal)
CPT/HCPCS: 81001; 87077; 87086; 87186

== ENCOUNTER → 2024-11-14 08:47 | Outpatient (CLI) | payer OTHER, SELFPAY ==
[2024-08-24 15:36] VITALS: BMI 34.8
--- NOTE | 2024-11-14 08:47 | DI.US.S_ITS ---
PROCEDURE: US CAROTID DOPPLER BI INDICATIONS: HYPERLIPIDEMIA/LEFT SIDED NECK PAIN TECHNIQUE: Color and pulse Doppler interrogation was performed of both carotid systems, with image documentation and velocity measurements. COMPARISON: (Prior imaging is not available for review from the archive at the time of this dictation.) FINDINGS: Stenosis calculations are based on SRU (Society of Radiologists in Ultrasound) criteria. The flow velocities and the arterial waveforms are normal within both carotid arterial systems. The estimated degree of internal carotid artery stenosis is less than 50%. Antegrade flow is confirmed within both vertebral arteries. Thyroid heterogeneity and nodules are incidentally noted. IMPRESSION: No hemodynamically significant stenosis is seen. Thyroid heterogeneity and nodules. If clinically appropriate, please consider a follow-up dedicated thyroid ultrasound for further evaluation. Dictated by: Shilo Noe M.D. on 11/14/2024 at 11:04 Approved by: Shilo Noe M.D. on 11/14/2024 at 11:08
== END ==
PROVIDERS: Family Provider Physician Assistant; PCP Physician Assistant; Referring Provider Physician Assistant; Visit Provider Physician Assistant
DX: M54.2 Cervicalgia (principal); E04.2 Nontoxic multinodular goiter; E78.5 Hyperlipidemia, unspecified
CPT/HCPCS: 93880

== ENCOUNTER → 2024-11-21 07:46 | Outpatient (CLI) | payer OTHER, SELFPAY ==
[2024-08-24 15:36] VITALS: BMI 34.8
--- NOTE | 2024-11-21 07:47 | DI.US.S_ITS ---
PROCEDURE: US THYROID INDICATIONS: pain in neck TECHNIQUE: Real-time scanning was performed of the thyroid gland, with image documentation. COMPARISON: None. FINDINGS: Thyroid: Right lobe measures 5.7 x 1.6 x 1.5 cm. Left lobe measures 4.9 x 1.6 x 1.2 cm. Isthmus is 0.4 cm thick. Echotexture is homogeneous. Nodule number: 1 Location: Right inferior thyroid lobe Size: 3.0 x 1.5 cm. Composition: Solid Echogenicity: Isoechoic Shape: wider than tall. Margins: Smooth Echogenic foci: None Total points: 3 ACR TI-RADS category: TIRADS 3 (mildly suspicious) Nodule number: 2 Location: Right mid Size: 1.3 x 1.1 x 1.1 cm. Composition: Predominantly cystic Echogenicity: Anechoic Shape: wider than tall. Margins: Smooth Echogenic foci: None Total points: 0 ACR TI-RADS category: TI-RADS 1 (benign) IMPRESSION: A 3.0 cm TIRADS 3 (mildly suspicious) right thyroid nodule which meets consensus criteria for fine-needle aspiration. ACR TI-RADS definitions and recommendations: TI-RADS 1 (benign): 0 points. FNA not needed. TI-RADS 2 (not suspicious): 2 points. FNA not needed. TI-RADS 3: 3 points. * FNA if 2.5 cm or larger, follow up if 1.5 cm or larger (at 1, 3, and 5 years). TI-RADS 4: 4-6 points. * FNA if 1.5 cm or larger, follow up if 1 cm or larger (at 1, 2, 3, and 5 years). TI-RADS 5: 7 points or more. * FNA if 1 cm or larger, follow up if 0.5 cm or larger (every year for 5 years). Dictated by: Wilian Stephenson M.D. on 11/21/2024 at 17:57 Approved by: Wilian Stephenson M.D. on 11/21/2024 at 18:01
== END ==
PROVIDERS: Family Provider Physician Assistant; PCP Physician Assistant; Referring Provider Physician Assistant; Visit Provider Physician Assistant
DX: M54.2 Cervicalgia (principal); E04.2 Nontoxic multinodular goiter
CPT/HCPCS: 76536

== ENCOUNTER → 2025-01-08 14:09 | Outpatient (CLI) | payer OTHER, SELFPAY ==
[2024-08-24 15:36] VITALS: BMI 34.8
--- NOTE | 2025-01-08 14:12 | DI.CT.S_ITS ---
PROCEDURE: CT ABDOMEN PELVIS WO CON INDICATIONS: right flank pain TECHNIQUE: Axial sections were acquired from the lung bases to the pubic symphysis. Coronal and sagittal reformats were performed. For radiation dose reduction, the following was used: automated exposure control, adjustment of mA and/or kV according to patient size. COMPARISON: None. FINDINGS: Image quality: Portions of the lower pelvis are suboptimally evaluated secondary to metallic streak artifact from hip arthroplasty. Lower Chest: No significant findings. URINARY: Right Kidney: No stones or hydronephrosis. Right Ureter: No hydroureter. Left Kidney: No stones or hydronephrosis. Left Ureter: No hydroureter. Bladder: Normal wall thickness. No stones. ABDOMEN: Liver: No contour-deforming solid mass. Gallbladder: Luminal stones without wall thickening. Biliary ducts: No biliary dilation. Pancreas: No ductal dilation. Spleen: Size is within normal limits. Adrenal Glands: No adrenal nodules. Stomach and Bowel: Normal colonic caliber, without significant wall thickening. Peritoneum: No abnormal intraperitoneal fluid. No free air. Ventral Wall: No hernia. Abdominal Nodes: No enlarged retroperitoneal or mesenteric lymph nodes. Vessels: Aorta and inferior vena cava are normal in size. PELVIS: Pelvic Organs: Unremarkable. Pelvic Nodes: Unremarkable. Miscellaneous: No inguinal hernias are seen. Bones: Left hip arthroplasty. IMPRESSION: No obstructing stones or hydronephrosis. Cholelithiasis without visualized cholecystitis. Stone appears to be present at the junction of the lumen/proximal cystic duct. Dictated by: Esperanza Prado M.D. on 01/08/2025 at 17:40 Approved by: Esperanza Prado M.D. on 01/08/2025 at 17:43
== END ==
PROVIDERS: Family Provider Physician Assistant; PCP Physician Assistant; Referring Provider Internal Medicine; Visit Provider Internal Medicine
DX: K80.20 Calculus of gallbladder without cholecystitis without obstruction (principal); R10.9 Unspecified abdominal pain; Z96.642 Presence of left artificial hip joint
CPT/HCPCS: 74176

== ENCOUNTER 2025-01-20 14:16 | Emergency (ER) | payer OTHER, SELFPAY ==
[2024-08-24 15:36] VITALS: BMI 34.8
[2025-01-20] VITALS (19 sets, daily range): BP systolic 135–183; BP diastolic 70–105; PULSE 82–134; RESP 11–50; O2SAT 70–100; BMI 26.3
--- NOTE | 2025-01-20 14:44 | DI.RAD.S_ITS ---
PROCEDURE: XR HIP W PEL IF DONE LT 2V INDICATIONS: dislocated TECHNIQUE: AP pelvis with lateral view(s) of the left hip(s). COMPARISON: [facility], CR, XR PELVIS WITH LATERAL HIP LEFT, 01/11/2025, 14:06. [facility], CR, XR HIP W PEL IF DONE LT 2V, 08/24/2024, 14:51. FINDINGS: Bones: There is superior dislocation of the left prosthetic hip from the acetabular cup. No associated fracture is seen. Moderate contralateral right hip degenerative change is seen. Soft tissues: The visualized bowel gas pattern is normal. No suspicious soft tissue calcifications. IMPRESSION: Left prosthetic hip dislocation. Dictated by: Shilo Noe M.D. on 01/20/2025 at 14:17 Approved by: Shilo Noe M.D. on 01/20/2025 at 14:19
[2025-01-20] MEDS: MORPHINE 4 MG/ML INJ IV (14:51)
[2025-01-20 15:29] LABS: Add Manual Diff / Slide Review NO; Basophils Absolute Auto 100 /uL (0-100); Basophils Percent Auto 1.1 % (0-2); Eosinophils Absolute Auto 100 /uL (0-450); Eosinophils Percent Auto 0.7 % (2-4); Hematocrit 38.8 % (36-46); Hemoglobin 13.1 g/dL (12.0-16.0); Lymphocytes Absolute Auto 600 /uL (1100-4500); Lymphocytes Percent Auto 7.9 % (25-40); Mean Corpuscular HGB Conc 33.8 % (30-36); Mean Corpuscular Hemoglobin 29.1 PG (26-34); Mean Corpuscular Volume 86.2 fL (80-100); Monocytes Absolute Auto 700 /uL (0-900); Monocytes Percent Auto 9.3 % (3-14); Neutrophils Absolute Auto 6300 /uL (1500-7000); Platelet Count 238 X10^3/uL (150-400); Red Blood Cell Count 4.51 X10^6/uL (4.0-5.2); Red Cell Distribution Width 14.6 % (11.6-14.8); White Blood Cell Count 7.8 X10^3/uL (4.5-11.0)
[2025-01-20 15:41] LABS: Blood Urea Nitrogen 15 mg/dL (7-17); Calcium 9.8 mg/dL (8.4-10.2); Carbon Dioxide 28 mmol/L (22-32); Chloride 102 mmol/L (98-107); Estimated Glomerular Filt Rate > 60 mL/min (>60); Glucose 88 mg/dL (70-99); HEMOLYSIS < 15 (0-50); Potassium 4.4 mmol/L (3.4-5.1); Sodium 138 mmol/L (137-145)
[2025-01-20] MEDS: HYDROMORPHONE 1 MG INJ IV (15:46)
--- NOTE | 2025-01-20 17:45 | DI.RAD.S_ITS ---
PROCEDURE: XR HIP W PEL IF DONE LT 2V INDICATIONS: post reduction TECHNIQUE: AP pelvis with lateral view(s) of the left hip(s). COMPARISON: [facility], CR, XR PELVIS WITH LATERAL HIP LEFT, 01/11/2025, 14:06. [facility], CR, XR HIP W PEL LT 2V, 01/20/2025, 14:40. FINDINGS: Bones: The left prosthetic hip has now been relocated. No associated fracture can be seen. Contralateral right hip degenerative change is seen. Soft tissues: The visualized bowel gas pattern is normal. No suspicious soft tissue calcifications. IMPRESSION: Successful left prosthetic hip relocation. Dictated by: Shilo Noe M.D. on 01/20/2025 at 17:40 Approved by: Shilo Noe M.D. on 01/20/2025 at 17:40
[2025-01-20] MEDS: ONDANSETRON 4 MG/2 ML INJ IV (17:53)
[2025-01-20] MEDS: KETAMINE 500 MG/5 ML INJ 100 MG IV (18:07)
[2025-01-20] MEDS: ACETAMINOPHEN 325 MG TABLET 975 MG PO (19:30)
--- NOTE | 2025-01-22 11:47 | ED_ITS ---
HPI - Extremity Injury (Lower) General Chief Complaint: Extremity Injury, Lower Stated Complaint: Hip Px Time Seen by Provider: 01/20/25 14:44 Source: patient and EMS Mode of arrival: EMS History of Present Illness HPI Narrative: 64-year-old female with history of left hip arthroplasty in August here with dislocation of left hip. Patient reports sudden onset left hip pain and sensation of dislocated hip that occurred while was leaning forward/bending forward to shave in the shower. She had her foot up on the edge of the time. Reports since her hip surgery she has had multiple instances at home where the hip seems to suddenly dislocate and relocate on its own. She reports has followed up with her orthopedic surgeon regarding this issue and there is no plans for revision or other testing. Patient is frustrated regarding the instability of her hip. At this time she is endorsing isolated left hip pain. No other injuries reported to me such as at her neck pain, pain of the torso or other extremities. Related Data Home Medications Medication Instructions Recorded Confirmed cyclobenzaprine 5 mg tablet 10 mg PO PRN PRN muscle spasms ##0 03/23/16 08/04/24 epinephrine 0.3 mg/0.3 mL 0.3 mg IJ PRN PRN yellow jackets 03/23/16 08/04/24 injection, auto-injector ##0 hydrochlorothiazide 25 mg tablet 25 mg PO PRN PRN Edema 08/04/24 08/04/24 hydroxychloroquine 200 mg tablet 200 mg PO BID 08/04/24 08/04/24 ramipril 10 mg capsule 10 mg PO DAILY 08/04/24 08/04/24 Previous Rx's Medication Instructions Recorded acetaminophen 325 mg tablet 650 mg (2 x 325 mg) PO Q6H PRN 08/25/24 Fever/Mild Pain (1-3) #120 tabs aspirin 81 mg tablet,delayed 81 mg PO BID #90 tabs 08/25/24 release hydromorphone 2 mg tablet 2 mg PO Q4HR PRN Pain, Moderate 08/25/24 (4-6) #30 tabs ibuprofen 400 mg tablet 400 mg PO Q4H PRN Pain, Mild (1-3) 08/25/24 #120 tabs Allergies Allergy/AdvReac Type Severity Reaction Status Date / Time hydrocodone Allergy Severe Hallucinations, Verified 08/24/24 09:46 blisters, vomiting. oxycodone [OXYCODONE] Allergy Severe Hallucinations, Verified 08/24/24 09:46 blisters, vomiting. adhesive Allergy Mild BLISTERING, Verified 08/24/24 09:46 RASH (AQUACEL DRSG OK, PAPER TAPE FAIR) codeine [CODEINE] Allergy Mild N&V, HIVES Verified 08/24/24 09:46 lactose AdvReac Verified 08/25/24 10:38 Review of Systems Review of Systems Narrative: Pertinent ROS obtained and negative except as stated in HPI Patient History Medical History (Updated 01/20/25 @ 18:51 by Dianna Nance MD) Chronic back pain Autoimmune disease IBS (irritable bowel syndrome) RIVAS on CPAP GERD (gastroesophageal reflux disease) Asthma HTN (hypertension) Surgical History History of partial hysterectomy Hx of discectomy Hx of bilateral mastectomy History of foot surgery S/P trigger finger release History of total left knee replacement History of total right knee replacement Social History household members: spouse Smoking Status: Never smoker alcohol intake: current Smoking Status: Never smoker Exam Initial Vital Signs Initial Vital Signs: Vital Signs Pulse Rate 83 01/20/25 14:26 Respiratory Rate 20 01/20/25 14:26 Blood Pressure 158/77 H 01/20/25 14:26 Pulse Oximetry 98 01/20/25 14:26 Oxygen Delivery Method Room Air 01/20/25 14:26 Constitutional: 64-year-old female resting in the bed, pillows under the left hip region, acute distress due to pain Head: NCAT Cardiovascular: RRR, no murmur or rub Pulmonary: CTA bilaterally, no respiratory distress Abdominal: soft, non-tender Extremities: There is discomfort over the left hemipelvis. Deferred range of motion testing. There is 2+ DP pulse in the left foot and the foot is warm. Sensation intact of the left lower extremity. Skin: warm and dry, no diaphoresis Neurological: Alert and oriented x3 Procedures Orthopedic Joint Reduction Joint #1: Time Out Performed: Yes Side: left Joint Reduction Location: hip Analgesia: procedural sedation Technique used: direct manipulation Post-reduction neuro exam: intact Post-reduction vascular: intact Post Reduction X-Ray Obtained: Yes Post Reduction X-Ray Results: reduced Splint Applied: Yes Patient Tolerated Procedure: Well and No complications Procedural Sedation Consent signed: Yes Time out performed: Yes Indication: fracture/dislocation reduction ASA Class: II Mallampati Airway Classification: Class I Ketamine dose (mg): 75 IV Propofol dose (mg): 0 ED Sedation Level: Moderate (Concious) Patient Tolerated Procedure: Well Additional Comments: Pt reports having disturbing dreams during her procedure. Would not want to be sedated with ketamine again if necessary Course Orders Ordered: Discontinued Medications Acetaminophen (Acetaminophen 325 Mg Tablet) 975 mg PO NOW ONE Stop: 01/20/25 19:12 Last Admin: 01/20/25 19:30 Dose: 975 mg Documented By: EFRAIN Hydromorphone HCl (Hydromorphone 1 Mg Inj) 1 mg IV NOW ONE Stop: 01/20/25 15:15 Last Admin: 01/20/25 15:46 Dose: 1 mg Documented By: ROGER Ketamine HCl (Ketamine 500 Mg/5 Ml Inj) 100 mg IV NOW ONE Stop: 01/20/25 17:12 Last Admin: 01/20/25 18:07 Dose: 75 mg Documented By: EFRAIN Morphine Sulfate (Morphine 4 Mg/Ml Inj) 4 mg IV NOW ONE Stop: 01/20/25 14:45 Last Admin: 01/20/25 14:51 Dose: 4 mg Documented By: Ondansetron HCl (Ondansetron 4 Mg/2 Ml Inj) 4 mg IV NOW ONE Stop: 01/20/25 17:52 Last Admin: 01/20/25 17:53 Dose: 4 mg Documented By: EFRAIN Propofol (Propofol 200 Mg/20 Ml Vial) 150 mg 2 mg/kg (150 mg) IV NOW ONE Stop: 01/20/25 15:28 Last Admin: 01/20/25 18:29 Dose: Not Given Documented By: EFRAIN MDM - Extremity Injury (Lower) Lab Data 01/20/25 15:20 01/20/25 15:20 Labs: Lab Results 01/20/25 Range/Units 15:20 WBC 7.8 (4.5-11.0) X10^3/uL RBC 4.51 (4.0-5.2) X10^6/uL Hgb 13.1 (12.0-16.0) g/dL Hct 38.8 (36-46) % MCV 86.2 (80-100) fL MCH 29.1 (26-34) PG MCHC 33.8 (30-36) % RDW 14.6 (11.6-14.8) % Plt Count 238 (150-400) X10^3/uL Neut % (Auto) 81.0 H (50-75) % Lymph % (Auto) 7.9 L (25-40) % [place] % (Auto) 9.3 (3-14) % Eos % (Auto) 0.7 L (2-4) % Baso % (Auto) 1.1 (0-2) % Neut # (Auto) 6300 (6066-0308) /uL Lymph # (Auto) 600 L (1657-8114) /uL [place] # (Auto) 700 (0-900) /uL Eos # (Auto) 100 (0-450) /uL Baso # (Auto) 100 (0-100) /uL Sodium 138 (137-145) mmol/L Potassium 4.4 (3.4-5.1) mmol/L Chloride 102 (98-107) mmol/L Carbon Dioxide 28 (22-32) mmol/L BUN 15 (7-17) mg/dL Creatinine 1.00 (0.52-1.04) mg/dL Estimated GFR > 60 (>60) mL/min BUN/Creatinine Ratio 15.0 (6-22) Glucose 88 (70-99) mg/dL Calcium 9.8 (8.4-10.2) mg/dL Point of Care Testing Test Results Not applicable MDM Narrative Medical decision making narrative: Pleasant 64-year-old female history of obesity and status post left hip arthroplasty in August here with dislocated left hip after was shaving in the shower. Patient neurovascularly intact distal to the injury. Plain films of the hip obtained and do confirm dislocation. Hip is reduced easily per procedure note above with use of IV ketamine and without complication although patient reports had some disturbing vision/dream during her sedation and would not like to be given ketamine again in the future if required another sedation. Patient monitored until returns to alertness. She is placed in a knee splint and provided with crutches and crutch training. Counseled her on postreduction hip precautions and she does plan to try to acquire a 4 wheeled walker. She is referred to Orthopedic surgery. She plans to follow-up with new provider as relates that she has had some frustration with the recurrent dislocations she has been experiencing at home Discharge Plan Departure Patient Disposition: Home Clinical Impression: Dislocation of hip, left, closed Instructions: Hip Dislocation Activity Restrictions/Additional Instructions: I am glad that we were able to successfully reduce your hip today. Please follow up with orthopedic surgeon for next steps. In the meantime, maintain dislocation precautions: Do not bend the operated hip past 90 degrees Leave knee immobilizer in place Do not cross your legs Do not rotate the left leg inward In bed, toes and knee cap should point toward ceiling You may toe-touch but avoid full weight bearing Prescriptions: No Action epinephrine 0.3 MG/0.3 ML auto-injector 0.3 mg IJ PRN PRN (Reason: yellow jackets) Qty: 0 cyclobenzaprine 5 MG tablet 10 mg PO PRN PRN (Reason: muscle spasms) Qty: 0 hydroxychloroquine 200 mg tablet 200 mg PO BID ramipril 10 mg capsule 10 mg PO DAILY hydrochlorothiazide 25 mg Tablet 25 mg PO PRN PRN (Reason: Edema) acetaminophen 325 mg Tablet 650 mg PO Q6H PRN (Reason: Fever/Mild Pain (1-3)) Qty: 120 0RF aspirin 81 mg Tablet,Delayed Release (Dr/Ec) 81 mg PO BID Qty: 90 0RF hydromorphone 2 mg Tablet 2 mg PO Q4HR PRN (Reason: Pain, Moderate (4-6)) Qty: 30 0RF ibuprofen 400 mg Tablet 400 mg PO Q4H PRN (Reason: Pain, Mild (1-3)) Qty: 120 0RF Referrals: Dwain Charles MD [Physician] - (prosthetic left hip dislocation, pt desires establish care with new orthopedic group) Ananya Wild PA-C [Primary Care Provider] - Stand Alone Forms: Patient Portal/API/Survey
== END 2025-01-20 19:55 | disposition home or self-care (01) ==
PROVIDERS: Emergency Provider Student in an Organized Health Care Education/Training Program; Family Provider Physician Assistant; PCP Physician Assistant
DX: S73.005A Unspecified dislocation of left hip, initial encounter (principal); Z96.642 Presence of left artificial hip joint
CPT/HCPCS: 27265; 73502; 80048; 85025; 96374; 96375; 99152; 99284; 99285; J1171; J2270; J2405